=== PATIENT | female | born 1970 ===

== ENCOUNTER 2024-06-16 08:16 | Day surgery (SDC) | payer BC ==
[~2024-06-16 08:16] MED LIST: Sodium Chloride 0.9% 10 ML Syringe FLUSH PRN; Sodium Chloride 0.9% 10 ML Syringe FLUSH SCH
[2024-06-16] MEDS ORDERED: Propofol 200 MG/20 ML SDV ONE ×3 (08:28→09:35)
[2024-06-16] MEDS: Lactated Ringers 1,000 ML IV SCH (08:30)
== END 2024-06-16 10:50 | disposition home or self-care (01) ==
LOC: JD.SDS 08:16
PROVIDERS: ATTEND Surgery
DX: Z12.11 Encounter for screening for malignant neoplasm of colon (principal); K22.2 Esophageal obstruction; K20.90 Esophagitis, unspecified without bleeding
CPT/HCPCS: 43239; 45385; C9777; J2704; J7120; 00813